=== PATIENT | female | born 1990 | race Hispanic/Latino ===

== ENCOUNTER 2024-10-18 11:36 | Emergency (ER) | payer SELFPAY ==
[~2024-10-18] VITALS: Ht 154.9 cm; Wt 59.0 kg
--- NOTE | 2024-10-18 11:53 | ERN ---
General Chief Complaint: Halluciations Stated Complaint: HALLUCINATION Time Seen by MD: 11:40 Time Seen by Midlevel: 11:40 Source: patient, EMS History of Present Illness Initial Comments Patient is a 34-year-old female being brought in by EMS for your wellness examination. According to EMS patient was picked up by PD after she was out found wandering. She was reporting auditory and visual hallucinations. Denies any suicidal ideation at this time. She does admit to doing cocaine and is complaining of chest pain. Allergies: Coded Allergies: No Known Allergies (Unverified Allergy, Unknown, 10/18/24) ROS Dictation CONSTITUTIONAL: Negative except for HPI HEAD/FACE: Negative except for HPI EENT: Negative except for HPI RESPIRATORY: Negative except for HPI GASTROINTESTINAL/ABDOMINAL: Negative except for HPI GENITOURINARY: Negative except for HPI MUSCULOSKELETAL: Negative except for HPI INTEGUMENTARY: Negative except for HPI NEUROLOGICAL/PSYCH: Negative except for HPI HEMATOLOGIC/LYMPHATIC: Negative except for HPI All Systems Negative, Except as noted above. 13 point review of systems assessed and all negative except for above. Physical Exam Physical Exam Dictation Vital Signs reviewed General Appearance: Alert, oriented x 3, no acute distress, well developed, nourished. Head and Face: non-traumatic. Eyes: PERRL, pink conjunctivas, eyelid no trauma, anterior chamber with arcus senilis. Ears: Pinnas intact and no signs of trauma or erythema ear canals clear and no discharge TM no erythema Nose: No discharge, no bleeding. Oropharynx: Mouth normal, tongue pink, pharynx clear,no erythema, tonsils no exudates, no abscesses noted, mucous membrane moist Neck: Supple, non-tender, no thyromegaly, no masses, no JVD, no bruits Breast:Deferred Chest:No tenderness, no crepitus, no paradoxical movement, no retractions Lungs:Clear, well-ventilated, symmetric, no rales, no wheezing, no rhonchi, no stridor, good breath sounds bilaterally Heart: Regular rate, regular rhythm, no murmur, no gallops Vascular: no peripheral edema, Abdomen: Soft, positive bowel sounds, nondistended, no guarding, nontender, no rebound, no masses no hepatomegaly, no splenomegaly, no Chao's sign, no hernias. Rectal: Deferred Genital: Deferred Neurological: Normal speech, motor function intact, sensory function intact Musculoskeletal: Neck nontender, full range of motion, back nontender, full range of motion, Extremities: nontender, full range of motion Skin: Color pink, dry, no turgor, no rash, no lacerations, no abrasions, no contusions. Lymphatic: Deferred Results Laboratory and Microbiology Lab and Micro Result Laboratory Tests Test 10/18/24 12:06 10/18/24 12:10 White Blood Count 17.5 K/uL (4.8-10.8) H Red Blood Count 4.64 MIL/uL (4.00-5.50) Hemoglobin 13.5 g/dL (12.0-16.0) Hematocrit 39.6 % (36-48) Mean Corpuscular Volume 85.3 fL (79-99) Mean Corpuscular Hemoglobin 29.1 pg (27.0-33.0) Mean Corpuscular Hemoglobin Concent 34.1 g/dL (32.0-36.0) Red Cell Distribution Width 12.4 % (11.0-15.5) Platelet Count 319 K/uL (130-400) Mean Platelet Volume 9.9 fL (7.5-10.5) Immature Granulocyte % (Auto) 0.6 % (0-1) Neutrophils (%) (Auto) 78.1 % (40.0-77.0) H Lymphocytes (%) (Auto) 11.0 % (21.0-51.0) L Monocytes (%) (Auto) 9.9 % (3.0-13.0) Eosinophils (%) (Auto) 0.1 % (0.0-8.0) Basophils (%) (Auto) 0.3 % (0.0-5.0) Neutrophils # (Auto) 13.7 K/uL (1.8-7.7) H Lymphocytes # (Auto) 1.9 K/uL (1.0-4.8) Monocytes # (Auto) 1.7 K/uL (0.1-1.0) H Eosinophils # (Auto) 0.02 K/uL (0.00-0.70) Basophils # (Auto) 0.06 K/uL (0.00-0.20) Absolute Immature Granulocyte (auto 0.11 K/uL (0-1) Nucleated Red Blood Cells 0.0 % (0.0-0.19) Sodium Level 136 mmol/L (136-145) Potassium Level 3.2 mmol/L (3.5-5.1) L Chloride Level 100 mmol/L (101-111) L Carbon Dioxide Level 24 mmol/L (21-32) Blood Urea Nitrogen 18 mg/dL (7-18) Creatinine 1.6 mg/dL (0.5-1.0) H Glomerular Filtration Rate Calc 43 mL/min (>90) Random Glucose 98 mg/dL (70-105) Total Calcium 9.6 mg/dL (8.5-10.1) Total Bilirubin 1.2 mg/dL (0.2-1.0) H Direct Bilirubin 0.2 mg/dL (0.0-0.3) Aspartate Amino Transf (AST/SGOT) 39 U/L (10-37) H Alanine Aminotransferase (ALT/SGPT) 32 U/L (12-78) Alkaline Phosphatase 60 U/L (50-136) Total Creatine Kinase 782 U/L (21-232) *H Troponin I High Sensitivity 8 ng/L (4-50) Total Protein 8.4 g/dL (6.0-8.3) H Albumin 4.5 g/dL (3.5-5.0) Lipase 26 U/L (16-77) Serum Test, Qualitative NEGATIVE (NEGATIVE) Salicylates Level < 2.8 mg/dL (2.8-20.0) L Acetaminophen Level < 1 mcg/mL (10-30) L Serum Alcohol < 3 mg/dL (0-10) Urine Color YELLOW (YELLOW) Urine Appearance CLOUDY (CLEAR) H Urine pH 6.5 (5.0-8.0) Urine Specific [place] 1.032 (1.001-1.031) Urine Protein 100 mg/dL (NEGATIVE) H Urine Glucose (UA) NEGATIVE mg/dL (NEGATIVE) Urine Ketones 40 mg/dL (NEGATIVE) H Urine Occult Blood +- (TRACE) (NEGATIVE) H Urine Nitrate NEGATIVE (NEGATIVE) Urine Bilirubin NEGATIVE mg/dL (NEGATIVE) Urine Urobilinogen 0.2 mg/dL (0.2-1.0) Urine Leukocyte Esterase 75 Jose Carlos/uL (NEGATIVE) H Urine RBC 11-25 /HPF (0-1) H Urine WBC 11-25 /HPF (0-1) H Urine Squamous Epithelial Cells MANY /HPF (0-2) Urine Bacteria MOD /HPF (None Seen) Urine Opiates Screen NEGATIVE (NEGATIVE) Urine Barbiturates Screen NEGATIVE (NEGATIVE) Urine Phencyclidine Screen NEGATIVE (NEGATIVE) Urine Amphetamines Screen POSITIVE (NEGATIVE) H Urine Benzodiazepines Screen NEGATIVE (NEGATIVE) Urine Cocaine Screen POSITIVE (NEGATIVE) H Urine Marijuana (THC) Screen POSITIVE (NEGATIVE) H Labs Reviewed?: Yes MDM MDM: Patient is a 34-year-old female being brought in by EMS for your wellness examination. According to EMS patient was picked up by PD after she was out found wandering. She was reporting auditory and visual hallucinations. Denies any suicidal ideation at this time. She does admit to doing cocaine and is complaining of chest pain. On arrival patient is in no acute distress. Patient was observed in the ER for over3 hours and has remained stable. She was screened by tropical and does not meet criteria for inpatient psychiatric care. Safety plan was created and patient will be following up outpatient. Patient is stable for discharge Differential diagnosis: Substance abuse, suicide ideation, psychiatric problem There are no social concerns with this patient. Prescription drug management Prescriptions will include: None Medical management and examination interpretation discussions were had by me with other qualified healthcare professionals as indicated for the patient's care. ED Course Orders Procedure Category Date Status Time Cbc With Differential LAB 10/18/24 Complete 11:42 Alcohol, Blood LAB 10/18/24 Complete 11:42 Salicylate LAB 10/18/24 Complete 11:42 Acetaminophen LAB 10/18/24 Complete 11:42 Testing, LAB 10/18/24 Complete Serum Hcg 11:42 Urinalysis Profile LAB 10/18/24 Complete 11:42 Creatine Kinase, Total LAB 10/18/24 Complete 11:42 Basic Metabolic Panel LAB 10/18/24 Complete 11:42 Drug Screen Urine LAB 10/18/24 Complete 11:42 Hepatic Function Panel LAB 10/18/24 Complete 11:42 Lipase LAB 10/18/24 Complete 11:42 Ondansetron Odt 4mg PHA 10/18/24 Complete Tab (Zofran 4mg Odt) 12:00 12 Lead Ekg Tracing- EKG 10/18/24 Complete Technical 11:51 Troponin I High LAB 10/18/24 Complete Sensitivity 11:51 Culture Urine PIETER 10/18/24 In Process 13:04 0.9%Nacl 1000ml (Ns PHA 10/18/24 Complete 1000ml) 13:30 Current Medications Medications (Trade) Dose Ordered Sig/Leandra Route PRN Reason Start Time Stop Time Status Last Admin Dose Admin Ondansetron HCl (zoFRAN 4MG ODT) 4 mg ONCE ONCE SL 10/18/24 12:00 10/18/24 12:01 DC 10/18/24 13:17 Sodium Chloride 1,000 ml @ 0 mls/hr ONCE ONCE IV 10/18/24 13:30 10/18/24 13:31 DC 10/18/24 14:33 Vital Signs Date Time Temp Pulse Resp B/P (MAP) Pulse Ox O2 Delivery O2 Flow Rate FiO2 10/18/24 13:48 98.2 110 16 107/74 98 Room Air* 0 21 10/18/24 12:44 98.1 109 20 107/74 99 Room Air* 0 21 10/18/24 11:40 97.9 110 20 162/74 99 0 DX & DISP Disposition: Discharge Departure Impression: Primary Impression: Substance abuse Additional Impression: Psychiatric problem Condition: Stable Additional Instructions: You were screened today and do not meet criteria for inpatient psychiatric care. A safety plan was created. Please follow up outpatient as discussed. Return to the ER for any new or worsening symptoms Time of Disposition: 15:59 I have reviewed the case, and I agree with, Diagnosis and Plan I performed the substantive portion of the visit. I have reviewed and personally made and approve the management plan that is documented in the note by myself or the FABIO. I acknowledge for responsibility for the patient's management plan. NANCY LATIF Oct 18, 2024 11:53
--- NOTE | 2024-10-18 12:22 | EKG ---
[facility] Test Date: 2024-10-18 Test Time: 12:20:11 Pat Name: CHRISTINE JURADO Department: ED Room: Gender: F Celery Wrapper: [id number] : 1990 Requested By: NANCY LATIF Order Number: [id number] Reading MD: Lauri Aguilar Measurements Intervals [address] Rate: 90 P: 20 NE: 141 QRS: 62 QRSD: 71 T: 52 QT: 368 QTc: 452 Interpretive Statements Sinus rhythm No previous ECG available for comparison Electronically Signed On 10-19-2024 15:11:25 [employer] by Lauri Aguilar Please click the below link to view image of tracing.
[2024-10-18 12:52] LABS: BASOPHILS # (AUTO) 0.06 K/uL (0.00-0.20); BASOPHILS % (AUTO) 0.3 % (0.0-5.0); EOSINOPHILS # (AUTO) 0.02 K/uL (0.00-0.70); EOSINOPHILS % (AUTO) 0.1 % (0.0-8.0); HEMATOCRIT 39.6 % (36-48); IMMATURE GRANULOCYTE ABSOLUTE 0.11 K/uL (0-1); LYMPHOCYTES # (AUTO) 1.9 K/uL (1.0-4.8); MEAN CORPUSCULAR HEMOGLOBIN 29.1 pg (27.0-33.0); MEAN CORPUSCULAR HGB CONC 34.1 g/dL (32.0-36.0); MEAN CORPUSCULAR VOLUME 85.3 fL (79-99); MONOCYTES # (AUTO) 1.7 K/uL (0.1-1.0); MONOCYTES % (AUTO) 9.9 % (3.0-13.0); NEUTROPHILS # (AUTO) 13.7 K/uL (1.8-7.7); NEUTROPHILS % (AUTO) 78.1 % (40.0-77.0); PLATELET COUNT (AUTO) 319 K/uL (130-400); RED BLOOD CELL COUNT(AUTO) 4.64 MIL/uL (4.00-5.50); RED CELL DISTRIBUTION WIDTH 12.4 % (11.0-15.5); WHITE BLOOD COUNT (AUTO) 17.5 K/uL (4.8-10.8)
[2024-10-18 12:57] LABS: APPEARANCE,URINE CLOUDY (CLEAR); BILIRUBIN,URINE NEGATIVE (NEGATIVE); COLOR,URINE YELLOW (YELLOW); GLUCOSE, URINE (UA) NEGATIVE (NEGATIVE); KETONES,URINE 40 mg/dL (NEGATIVE); LEUKOCYTE ESTERASE ,URINE 75 Leu/uL (NEGATIVE); NITRATE,URINE NEGATIVE (NEGATIVE); PH,URINE 6.5 (5.0-8.0); PROTEIN,URINE 100 mg/dL (NEGATIVE); UROBILINOGEN,URINE 0.2 mg/dL (0.2-1.0)
[2024-10-18 12:58] LABS: CARBON DIOXIDE 24 mmol/L (21-32); CHLORIDE 100 mmol/L (101-111); CREATININE 1.6 mg/dL (0.5-1.0); GLOMERULAR FILTR. RATE CALC 43 mL/min (>90); GLUCOSE,RANDOM 98 mg/dL (70-105); POTASSIUM 3.2 mmol/L (3.5-5.1); SODIUM SERUM 136 mmol/L (136-145); UREA NITROGEN, BLOOD 18 mg/dL (7-18)
[2024-10-18 13:02] LABS: AMPHET/METH SCREEN,URINE POSITIVE (NEGATIVE); BARBITURATE SCREEN, URINE NEGATIVE (NEGATIVE); BENZODIAZEPINES SCREEN,URINE NEGATIVE (NEGATIVE); CANNABINOID SCREEN,URINE POSITIVE (NEGATIVE); COCAINE SCREEN,URINE POSITIVE (NEGATIVE); OPIATE SCREEN,URINE NEGATIVE (NEGATIVE); PHENCYCLIDINE SCREEN,URINE NEGATIVE (NEGATIVE)
[2024-10-18 13:02] LABS: BILIRUBIN,TOTAL 1.2 mg/dL (0.2-1.0)
[2024-10-18 13:03] LABS: ACETAMINOPHEN < 1 mcg/mL (10-30); ALANINE AMINOTRANSFERASE 32 U/L (12-78); ALBUMIN 4.5 g/dL (3.5-5.0); ALCOHOL, BLOOD < 3 mg/dL (0-10); ASPARTATE AMINOTRANSFERASE 39 U/L (10-37); BILIRUBIN,DIRECT 0.2 mg/dL (0.0-0.3); SALICYLATE < 2.8 mg/dL (2.8-20.0); TOTAL PROTEIN, SERUM 8.4 g/dL (6.0-8.3)
[2024-10-18 13:04] LABS: ADD UA MICROSCOPIC YES
[2024-10-18 13:04] LABS: CREATINE KINASE, TOTAL 782 U/L (21-232)
[2024-10-18] MEDS: ondanSETRON ODT 4MG TAB SL ONE (13:17)
[2024-10-18 13:31] LABS: BACTERIA,URINE MOD /HPF (None Seen); MUCUS,URINE MANY LPF (None Seen); SQUAMOUS EPITHELIAL CELL,UR MANY /HPF (0-2)
[2024-10-18] MEDS: 0.9%NACL 1000ML 1,000 ML IV ONE (14:33)
--- NOTE | 2024-10-18 14:47 | NUR ---
[facility] CONTACTED AT THIS TIME. THEY WILL DISPATCH A PSYCHE SCREENER TO OUR FACILITY TO EVALUATE PT.
--- NOTE | 2024-10-18 15:20 | NUR ---
[facility] PSYCHE SCREENER CY SALAZAR AT THE BEDSIDE.
[2024-10-18 16:13] VITALS: BP 110/75; PULSE 98; RESP 16; TEMP 98; O2SAT 99
== END 2024-10-18 16:19 | disposition home or self-care (01) ==
LOC: EEVIPCON 11:36 → EDH 11:36
DX: F19.10 Other psychoactive substance abuse, uncomplicated (principal); F99 Mental disorder, not otherwise specified
CPT/HCPCS: 99284; 96360; 82550; 80076; 84484; 80048; 80305; 84703; 83690; 85025; 87086; 36415; 93005; 81001; G0481; J7030